=== PATIENT | female | born 1990 | race Caucasian/White ===

== ENCOUNTER 2017-11-18 08:54 | Inpatient (IN) | payer BC ==
--- NOTE | 2017-12-03 20:13 | PDOC.LDHP ---
Labor and Delivery H&P Chief complaint: scheduled induction HPI: Pt is a 27yo @ 41 weeks here for scheduled IOL but presents in active labor. Current gestational age (weeks): 41 Due date: 11/25/17 Grav: 4 Para: 2 OB History Details: 2 Current complications: none Abnormal US findings: No (EFW 8lb) Current medications: pre-tonie vitamins Previous surgical history: none Allergies/Adverse Reactions: Allergies Allergy/AdvReac Type Severity Reaction Status Date / Time penicillin G Allergy Unknown Verified 01/11/16 08:51 Social history: none - Physical Exam Vital signs reviewed and normal: yes General: resting Heart: RRR Lungs: CTAB Abdomen: gravid Extremeties: no edema - Vaginal Exam cm dilated: 4 Effacement: 75% Station: -1 - OB Labs Blood type: O RH: negative Antibody Screen: negative HIV: negative RPR: negative HEPSAg: negative GBS: negative - Assessment L&D Assessment: term patient in labor - Plan Plan: admit to L&D, informed consent obtained, anesthesia consult for pain management -: AROM on admit exam, clear fluid. Declines epidural at this time.
[2017-12-04] MEDS ORDERED: Lactated Ringer's 1,000 ML IV SCH (09:54)
[2017-12-04] MEDS ORDERED: Butorphanol Tartrate 1 MG/ML VIAL SLOW IVP PRN (09:54)
[2017-12-04] MEDS ORDERED: Acetaminophen/Codeine 30-300mg Tablet PO PRN ×4 (09:54→17:40)
[2017-12-04] MEDS ORDERED: Ibuprofen 800 MG TAB PO PRN (09:54)
[2017-12-04] MEDS ORDERED: Promethazine HCl 25 MG/ML VIAL IM PRN (09:54)
[2017-12-04] MEDS ORDERED: Ondansetron HCl/PF 4 MG/2 ML Vial IVP PRN (09:54)
[2017-12-04] MEDS ORDERED: Lidocaine 1% (PF) 30 ML VIAL SC PRN (09:54)
[2017-12-04] MEDS ORDERED: NS w/ Oxytocin 10 units 500 ML IV SCH ×2 (09:54)
[2017-12-04 09:55] VITALS: BMI 26.4
[2017-12-04 10:26] LABS: Hemoglobin 12.6 g/dL (12.0-16.0); Mean Corpuscular HGB CONC 36.2 g/dL (32.0-36.0); Mean Corpuscular Hemoglobin 33.8 pg (27.0-31.0); Mean Corpuscular Volume 93.4 fL (78.0-98.0); Mean Platelet Volume 8.8 fL (7.4-10.4); Platelet Count 156 thou/uL (130-400); RBC Distribution Width 11.8 % (11.5-14.5); Red Blood Cell (RBC) Count 3.74 mill/uL (4.20-5.40); White Blood Cell (WBC) Count 9.9 thou/uL (4.8-10.8)
[2017-12-04 11:04] LABS: HBSAg Index 0.18 S/CO (0-0.99); Hep B Surf Ag Non-Reactive S/CO (NonReactive)
[2017-12-04] MEDS: NS / Oxytocin 40 units/1000ml 1,000 ML IV PRN ×2 (13:44→16:10)
--- NOTE | 2017-12-04 14:04 | PDOC.OPDEL ---
OB Operative/Delivery Note Delivery Dr/Surgeon: Cory Pre-Delivery Diagnosis: active labor Procedure/Post Delivery Dx: spontaneous vaginal delivery Weeks gestation: 41 - Findings A Sex: female - 1 min: 9 - 5 min: 9 - Additional Findings/Plan Placenta delivered: spontaneous Repaired Obstetrical Laceration: 1st degree Estimated blood loss: 300ml Compilations/Other Findings: precipitous delivery Post delivery plan: routine recovery
[2017-12-04] MEDS ORDERED: NS / Oxytocin 40 units/1000ml 1,000 ML IV SCH (17:40)
[2017-12-04] MEDS ORDERED: Lanolin Ointment 7 GM TUBE TOP PRN (17:40)
[2017-12-04] MEDS ORDERED: Benzocaine/Menthol 20-0.5% 60 ML CAN TOP PRN (17:40)
[2017-12-04] MEDS ORDERED: Bisacodyl 10 MG SUPP PR PRN (17:40)
[2017-12-04] MEDS ORDERED: Milk Of Magnesia 30 ML UDCUP PO PRN (17:40)
[2017-12-04] MEDS ORDERED: Adacel (T-DAP) 0.5 ML VIAL IM ONE (17:40)
[2017-12-04] MEDS: Ferrous Sulfate 325 MG TAB PO SCH (18:13)
[2017-12-04] MEDS: Ibuprofen 800 MG TAB PO SCH (22:17)
[2017-12-04] MEDS: Docusate Calcium (SURFAK) 240 MG CAP PO SCH (22:17)
[2017-12-05] MEDS: Ibuprofen 800 MG TAB PO SCH ×2 (06:32→14:27)
[2017-12-05] MEDS: Ferrous Sulfate 325 MG TAB PO SCH (07:53)
--- NOTE | 2017-12-05 08:10 | PDOC.PP ---
Post Progress Note Post Day #: 1 Subjective: doing well, no concerns, nursing well, normal lochia PO intake tolerated: yes Ambulation: yes Vital Signs (12 hours) Temp Pulse Resp 12/05/17 04:00 98.5 F 88 20 12/05/17 00:00 98.5 F 88 20 Weight Weight 169 lb - Physical Examination General: NAD Respiratory: non-labored breathing Skin: no rash Psychiatric: A&Ox3, normal affect Result Diagrams: 12/04/17 09:45 Additional Labs: Post Labs Blood Type O NEGATIVE 12/04/17 09:45 Hep Bs Antigen Non-Reactive S/CO (NonReactive) 12/04/17 09:45 (1) 41 weeks gestation of Code(s): Z3A.41 - 41 WEEKS GESTATION OF Status: Acute (2) Active labor at term Code(s): [id number] - Status: Acute - Assessment/Plan PPD1 doing well, plan on DC today if baby DC.
[2017-12-05] MEDS ORDERED: Prenatal Vitamin 1 TAB PO SCH (09:00)
[2017-12-05] MEDS: Docusate Calcium (SURFAK) 240 MG CAP PO SCH (09:21)
[2017-12-05 11:50] VITALS: BP 136/91; TEMP 97.7
== END 2017-12-05 15:40 | disposition home or self-care (01) | DRG 775 ==
LOC: L&D 12-04 09:26 → 3SW 12-04 17:45
PROVIDERS: ADMIT Obstetrics & Gynecology; ATTEND Obstetrics & Gynecology
PROC: 10E0XZZ Delivery of Products of Conception, External Approach (ICD-10-PCS; principal; 2017-12-04)
PROC: 0HQ9XZZ Repair Perineum Skin, External Approach (ICD-10-PCS; 2017-12-04)
PROC: 10907ZC Drainage of Amniotic Fluid, Therapeutic from Products of Conception, Via Natural or Artificial Opening (ICD-10-PCS; 2017-12-04)
DX: O48.0 Post-term pregnancy (principal); Z3A.41 41 weeks gestation of pregnancy; Z37.0 Single live birth; O70.0 First degree perineal laceration during delivery; O62.3 Precipitate labor
CPT/HCPCS: 36415; 85027; 85461; 86850; 86870; 86900; 86901; 87340; 90384; 96372; J2001